=== PATIENT | female | born 1940 | race Caucasian/White ===

== ENCOUNTER 2017-12-31 15:47 | Outpatient (CLI) | payer MEDICARE, OTHER | END 2017-12-31 15:48 | disposition home or self-care (01) | LOC: BICMAMMO 15:47 | PROVIDERS: ATTEND Family Medicine | DX: Z12.31 Encounter for screening mammogram for malignant neoplasm of breast (principal) | CPT/HCPCS: 77063; 77067 ==

== ENCOUNTER 2019-09-04 05:12 | Emergency (ER) | payer MEDICARE, OTHER ==
[2019-09-04] MEDS ORDERED: predniSONE 20 MG TAB ONE (05:41)
[2019-09-04] MEDS ORDERED: Famotidine 20 MG TAB ONE (05:41)
== END 2019-09-04 06:49 | disposition home or self-care (01) ==
LOC: ERS 05:12
DX: R42 Dizziness and giddiness (principal); R11.10 Vomiting, unspecified; R68.2 Dry mouth, unspecified; T40.2X5A Adverse effect of other opioids, initial encounter; I25.2 Old myocardial infarction; K21.9 Gastro-esophageal reflux disease without esophagitis; E66.9 Obesity, unspecified; E11.9 Type 2 diabetes mellitus without complications; E03.9 Hypothyroidism, unspecified; I50.9 Heart failure, unspecified; Z87.891 Personal history of nicotine dependence; Z79.899 Other long term (current) drug therapy; Z79.82 Long term (current) use of aspirin; Z79.84 Long term (current) use of oral hypoglycemic drugs
CPT/HCPCS: 99284; J7512

== ENCOUNTER 2019-09-20 14:50 | Outpatient (CLI) | payer MEDICARE, OTHER ==
--- NOTE | 2019-09-20 15:16 | RAD ---
EXAM: 3 views of the lumbosacral spine HISTORY: Low back pain COMPARISON: None FINDINGS: 3 views of the lumbosacral spine shows normal height and alignment of the vertebral bodies without fracture or subluxation. The intervertebral discs are narrowed throughout the lumbar spine. The L3/4 intervertebral disc has significantly decreased in height compared to the prior examination. Alignment is unchanged with flexion and extension. Vascular calcic lesions are seen in the aorta. 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
== END 2019-09-20 14:51 | disposition home or self-care (01) ==
LOC: TBSIIMAG 14:50
PROVIDERS: ATTEND Neurological Surgery
DX: M51.26 Other intervertebral disc displacement, lumbar region (principal); M47.816 Spondylosis without myelopathy or radiculopathy, lumbar region; M53.86 Other specified dorsopathies, lumbar region
CPT/HCPCS: 72100

== ENCOUNTER 2019-09-30 11:59 | Outpatient (CLI) | payer MEDICARE, OTHER ==
--- NOTE | 2019-09-30 13:07 | ULT ---
US Venous Doppler Lt Unilat History: Leg edema and swelling Comparison: None. Findings: Real-time grayscale, color, and spectral analysis left lower extremity venous system was pe rformed. The common femoral, femoral, proximal portions greater saphenous and deep femoral veins as well as the popliteal and posterior tibial veins were interrogated. Normal flow, augmentation, and compression. Impression: No deep venous thrombosis. Moderate superficial soft tissue edema.
== END 2019-09-30 12:00 | disposition home or self-care (01) ==
LOC: BICULT 11:59
PROVIDERS: ATTEND Family Medicine
DX: R60.1 Generalized edema (principal)

== ENCOUNTER 2021-06-05 19:04 | Inpatient (IN) | payer MEDICARE, OTHER ==
[~2021-06-05 19:04] MED LIST: Iopamidol-370 76% 500 ML 1 ML ONE
[2021-06-05 20:00] LABS: Hemoglobin 13.1 g/dL (12.0-16.0); Mean Corpuscular HGB CONC 32.6 g/dL (32.0-36.0); Mean Corpuscular Hemoglobin 28.5 pg (27.0-31.0); Mean Corpuscular Volume 87.4 fL (78.0-98.0); RBC Distribution Width 17.3 % (11.5-14.5); Red Blood Cell (RBC) Count 4.61 mill/uL (4.20-5.40)
[2021-06-05 20:10] LABS: INR-International Normal Ratio 1.2; PTT 32.1 sec (22.9-36.1); Prothrombin Time 15.3 sec (12.0-14.7)
[2021-06-05 20:12] LABS: Anisocytosis SLIGHT = 6-15 cells (100X) (0-5/hpf); Band 9 % (5-11); Eosinophils 1 % (0-10); Lymphocytes 29 % (21-51); MDiff Complete? YES; Monocytes 3 % (0-10); Neutrophil 52 % (42-75); Platelet Count 103 thou/uL (130-400); Platelet Morphology Comment Appears Decreased; Polychromasia MODERATE = 3-4 cells (100X) (0-2/hpf); Reactive Lymphocytes 6 % (0-10); Tear Drops SLIGHT = 2-5 cells (100X) (0-1/hpf)
[2021-06-05 20:14] LABS: ALT (SGPT) 14 U/L (8-55); AST (SGOT) 61 U/L (5-34); Acetaminophen Less than 6.0 mcg/mL (10.0-30.0); Albumin 3.4 g/dL (3.4-4.8); Alcohol Less than 10 mg/dL (Less than 10); Alkaline Phosphatase 148 U/L (40-110); Anion Gap 22 mmol/L (10-20); BUN (Urea Nitrogen) 40 mg/dL (9.8-20.1); Bilirubin, Total 0.8 mg/dL (0.2-1.2); Calc. Creatinine Clearance 0 mL/min (70-130); Calcium 9.7 mg/dL (7.8-10.44); Carbon Dioxide 24 mmol/L (23-31); Chloride 92 mmol/L (98-107); Globulin 3.4 g/dL (2.4-3.5); Glucose 250 mg/dL (83-110); Magnesium 2.1 mg/dL (1.6-2.6); Potassium 3.9 mmol/L (3.5-5.1); Protein, Total 6.8 g/dL (5.8-8.1); Salicylate Less than 8.0 mg/dL (15.0-30.0); Sodium 134 mmol/L (136-145)
[2021-06-05 20:32] LABS: CKMB 2.8 ng/mL (0-6.6)
[2021-06-05] MEDS ORDERED: levETIRAcetam 500 MG/100 ML PREMIX BAG ONE ×2 (21:31→21:33)
[2021-06-05] MEDS ORDERED: Aspirin 325 MG TAB ONE (21:31)
[2021-06-05] MEDS ORDERED: levETIRAcetam in NS 0 ML ONE (21:31)
[2021-06-05] MEDS ORDERED: levETIRAcetam in NS 100 ML ONE (21:32)
[2021-06-06] MEDS ORDERED: Acetaminophen 325 MG TAB PO SCH (01:30)
[2021-06-06] MEDS ORDERED: Ondansetron ODT 4 MG TAB PO PRN (03:50)
[2021-06-06] MEDS ORDERED: Dextrose 5% in Water 1,000 ML IV PRN (03:50)
[2021-06-06] MEDS ORDERED: Morphine 4 MG/ML VIAL SLOW IVP PRN (04:05)
[2021-06-06 05:19] LABS: #Eosinphils 0.1 thou/uL (0.0-0.7); #Lymphocytes 1.6 thou/uL (1.20-3.40); #Monocytes 0.7 thou/uL (0.11-0.59); #Neutrophils 7.4 thou/uL (1.40-6.50); %Basophils 0.1 % (0.0-1.0); %Eosinophils 0.7 % (0.0-10.0); %Lymphocytes 16.3 % (21.0-51.0); %Monocytes 6.8 % (0.0-10.0); %Neutrophils 76.1 % (42.0-75.0); Mean Corpuscular HGB CONC 31.6 g/dL (32.0-36.0); Mean Corpuscular Hemoglobin 27.8 pg (27.0-31.0); Mean Platelet Volume 8.9 fL (7.4-10.4); Platelet Count 83 thou/uL (130-400); RBC Distribution Width 16.6 % (11.5-14.5); Red Blood Cell (RBC) Count 4.32 mill/uL (4.20-5.40); White Blood Cell (WBC) Count 9.7 thou/uL (4.8-10.8)
[2021-06-06] MEDS ORDERED: Sodium Chloride 0.9% 1,000 ML IV SCH (05:30)
[2021-06-06] MEDS ORDERED: Piperacillin/Tazobactam 3.375 GM in Sodium Chloride 0.9% 100 ML IVPB SCH (05:30)
[2021-06-06] MEDS ORDERED: Sodium Chloride 0.9% 500 ML IV SCH (05:30)
[2021-06-06 05:32] LABS: Anion Gap 21 mmol/L (10-20); BUN (Urea Nitrogen) 42 mg/dL (9.8-20.1); Calc. Creatinine Clearance 24 mL/min (70-130); Calcium 9.5 mg/dL (7.8-10.44); Carbon Dioxide 24 mmol/L (23-31); Chloride 96 mmol/L (98-107); Glucose 137 mg/dL (83-110); Potassium 4.7 mmol/L (3.5-5.1); Sodium 136 mmol/L (136-145)
[2021-06-06 07:11] LABS: Lactic Acid 2.1 mmol/L (0.5-2.2)
[2021-06-06] MEDS: Acetaminophen 325 MG TAB PO PRN ×3 (10:15→21:19)
[2021-06-06] MEDS: Piperacillin/Tazobactam 3.375 GM in Sodium Chloride 0.9% 100 ML IVPB SCH ×2 (10:15→21:19)
[2021-06-06] MEDS: Aspirin 81 mg Enteric Coated Tablet PO SCH (10:16)
[2021-06-06] MEDS: Polyethylene Glycol 3350 17 GM Packet PO SCH (10:16)
[2021-06-06 12:12] LABS: SARS-CoV-2 PCR by NAA Not Detected (NotDetected)
[2021-06-06] MEDS: Sodium Chloride 0.9% 1,000 ML IV SCH (14:39)
[2021-06-06 17:35] LABS: Bacteria/HPF None Seen HPF (None Seen); Bilirubin Negative (Negative); Blood, Urine Negative (Negative); Clarity Clear (Clear); Glucose, Urine (Dipstick) Normal (Negative); Ketone, Urine Negative (Negative); Leukocyte 25 Leu/uL (Negative); Nitrite Negative (Negative); Protein, Urine (Dipstick) 30 mg/dL (Neg-Trace); RBC/HPF 0-3 HPF (0-3); Specific Gravity, Urine 1.027 (1.002-1.036); Urobilinogen Normal mg/dL (Less than 2)
[2021-06-06 17:39] LABS: Urine Culture Reflex No No
[2021-06-06] MEDS: Dextrose 50% Abboject 50 ML SYRINGE SLOW IVP PRN (21:20)
[2021-06-07] MEDS: Sodium Chloride 0.9% 1,000 ML IV SCH ×4 (00:01→21:49)
[2021-06-07] MEDS ORDERED: Cyclobenzaprine 10 MG TAB PO SCH (03:16)
[2021-06-07 05:47] LABS: #Eosinphils 0.1 thou/uL (0.0-0.7); #Lymphocytes 1.6 thou/uL (1.20-3.40); #Monocytes 0.5 thou/uL (0.11-0.59); #Neutrophils 6.6 thou/uL (1.40-6.50); %Basophils 0.4 % (0.0-1.0); %Eosinophils 1.5 % (0.0-10.0); %Lymphocytes 18.1 % (21.0-51.0); %Monocytes 5.9 % (0.0-10.0); %Neutrophils 74.1 % (42.0-75.0); Hemoglobin 12.1 g/dL (12.0-16.0); Mean Corpuscular HGB CONC 33.3 g/dL (32.0-36.0); Mean Corpuscular Hemoglobin 29.4 pg (27.0-31.0); Mean Corpuscular Volume 88.4 fL (78.0-98.0); Mean Platelet Volume 9.3 fL (7.4-10.4); Platelet Count 82 thou/uL (130-400); Red Blood Cell (RBC) Count 4.12 mill/uL (4.20-5.40); White Blood Cell (WBC) Count 8.9 thou/uL (4.8-10.8)
[2021-06-07 06:09] LABS: Anion Gap 20 mmol/L (10-20); BUN (Urea Nitrogen) 41 mg/dL (9.8-20.1); Calc. Creatinine Clearance 22 mL/min (70-130); Calcium 9.1 mg/dL (7.8-10.44); Carbon Dioxide 22 mmol/L (23-31); Cardiac Risk 3.2 (Less than 4.5); Chloride 97 mmol/L (98-107); Cholesterol 100 mg/dl (< 200 Desired); Glucose 148 mg/dL (83-110); HDL Cholesterol 31 mg/dL (>60 Neg Risk); LDL Cholesterol, Calculated 50 mg/dL; Potassium 4.1 mmol/L (3.5-5.1); Sodium 135 mmol/L (136-145); Triglycerides 93 mg/dL (Less than 150)
[2021-06-07] MEDS: Aspirin 81 mg Enteric Coated Tablet PO SCH (09:34)
[2021-06-07] MEDS: Piperacillin/Tazobactam 3.375 GM in Sodium Chloride 0.9% 100 ML IVPB SCH (09:34)
[2021-06-07] MEDS: Polyethylene Glycol 3350 17 GM Packet PO SCH (10:15)
[2021-06-07] MEDS ORDERED: levETIRAcetam 500 MG TAB PO SCH (19:00)
[2021-06-08] MEDS: Acetaminophen 325 MG TAB PO PRN (01:15)
[2021-06-08] MEDS ORDERED: Cyclobenzaprine 10 MG TAB PO SCH (03:00)
[2021-06-08] MEDS: Sodium Chloride 0.9% 1,000 ML IV SCH ×4 (03:04→21:17)
[2021-06-08] MEDS: levETIRAcetam 500 MG TAB PO SCH ×2 (08:50→20:29)
[2021-06-08] MEDS: Aspirin 81 mg Enteric Coated Tablet PO SCH (08:50)
[2021-06-08] MEDS ORDERED: FLU VACC QS2021-22(65YR UP)/PF 240 MCG/0.7 ML SYRINGE IM ONE (09:00)
[2021-06-08] MEDS ORDERED: Gabapentin 400 MG CAP PO SCH (10:00)
[2021-06-08] MEDS: Lidocaine 5% Patch TD SCH (10:12)
[2021-06-08 10:23] LABS: Anion Gap 20 mmol/L (10-20); BUN (Urea Nitrogen) 35 mg/dL (9.8-20.1); Calc. Creatinine Clearance 26 mL/min (70-130); Calcium 9.4 mg/dL (7.8-10.44); Carbon Dioxide 19 mmol/L (23-31); Chloride 104 mmol/L (98-107); Glucose 68 mg/dL (83-110); Sodium 139 mmol/L (136-145)
[2021-06-08] MEDS: Gabapentin 400 MG CAP PO SCH ×2 (15:44→20:29)
[2021-06-08] MEDS: Rosuvastatin 10 MG TAB PO SCH (20:29)
[2021-06-08] MEDS: Atorvastatin Calcium 20 MG TAB PO SCH (20:29)
[2021-06-08] MEDS: Transdermal Patch Removal TOP SCH (20:38)
[2021-06-09] MEDS ORDERED: Cepastat Lozenges 1 LOZ PO PRN (01:10)
[2021-06-09] MEDS: hydrALAZINE 20 MG/ML VIAL SLOW IVP PRN ×2 (01:21→03:57)
[2021-06-09 05:38] LABS: Anion Gap 17 mmol/L (10-20); BUN (Urea Nitrogen) 36 mg/dL (9.8-20.1); Calc. Creatinine Clearance 35 mL/min (70-130); Carbon Dioxide 21 mmol/L (23-31); Chloride 102 mmol/L (98-107); Potassium 4.1 mmol/L (3.5-5.1); Sodium 136 mmol/L (136-145)
[2021-06-09 05:39] LABS: Calcium 9.4 mg/dL (7.8-10.44); Glucose 109 mg/dL (83-110)
[2021-06-09] MEDS: Levothyroxine Sodium 112 MCG TAB PO SCH (05:48)
[2021-06-09] MEDS: Levothyroxine Sodium 25 MCG TAB PO SCH (05:48)
[2021-06-09] MEDS: Lidocaine 5% Patch TD SCH (06:25)
[2021-06-09] MEDS: Acetaminophen 325 MG TAB PO PRN (08:08)
[2021-06-09] MEDS: Gabapentin 400 MG CAP PO SCH ×3 (08:10→20:18)
[2021-06-09] MEDS: Aspirin 81 mg Enteric Coated Tablet PO SCH (08:11)
[2021-06-09] MEDS: levETIRAcetam 500 MG TAB PO SCH ×2 (08:11→20:18)
[2021-06-09] MEDS: DULoxetine 60 MG CAP PO SCH (08:11)
[2021-06-09] MEDS ORDERED: tiZANidine HCl 4 MG TAB PO SCH (08:45)
[2021-06-09] MEDS ORDERED: Amlodipine 5 MG TAB PO SCH (14:00)
[2021-06-09] MEDS: Atorvastatin Calcium 20 MG TAB PO SCH (20:18)
[2021-06-09] MEDS: Rosuvastatin 10 MG TAB PO SCH (20:18)
[2021-06-10] MEDS: Acetaminophen 325 MG TAB PO PRN (01:35)
[2021-06-10] MEDS: tiZANidine HCl 4 MG TAB PO PRN ×3 (01:35→15:58)
[2021-06-10] MEDS: Transdermal Patch Removal TOP SCH ×2 (01:37→21:50)
[2021-06-10 06:23] LABS: Anion Gap 15 mmol/L (10-20); BUN (Urea Nitrogen) 34 mg/dL (9.8-20.1); Calc. Creatinine Clearance 38 mL/min (70-130); Calcium 9.3 mg/dL (7.8-10.44); Carbon Dioxide 25 mmol/L (23-31); Chloride 100 mmol/L (98-107); Glucose 97 mg/dL (83-110); Potassium 4.7 mmol/L (3.5-5.1); Sodium 135 mmol/L (136-145)
[2021-06-10] MEDS: Levothyroxine Sodium 112 MCG TAB PO SCH (06:26)
[2021-06-10] MEDS: Levothyroxine Sodium 25 MCG TAB PO SCH (06:26)
[2021-06-10] MEDS ORDERED: Amlodipine 5 MG TAB PO SCH (09:00)
[2021-06-10] MEDS: Lidocaine 5% Patch TD SCH (09:12)
[2021-06-10] MEDS: Amlodipine 5 MG TAB PO SCH (09:12)
[2021-06-10] MEDS: Aspirin 81 mg Enteric Coated Tablet PO SCH (09:13)
[2021-06-10] MEDS: DULoxetine 60 MG CAP PO SCH (09:13)
[2021-06-10] MEDS: Gabapentin 400 MG CAP PO SCH ×3 (09:13→20:28)
[2021-06-10] MEDS: levETIRAcetam 500 MG TAB PO SCH ×2 (09:13→20:28)
[2021-06-10] MEDS: Atorvastatin Calcium 20 MG TAB PO SCH (20:28)
[2021-06-10] MEDS: diphenhydrAMINE 25 MG CAP PO PRN (20:29)
[2021-06-10] MEDS: Rosuvastatin 10 MG TAB PO SCH (20:29)
[2021-06-10] MEDS: HYDROcodone/Acetaminophen 5/325 mg Tablet PO PRN (20:29)
[2021-06-11] MEDS: diphenhydrAMINE 25 MG CAP PO PRN ×3 (01:38→19:57)
[2021-06-11] MEDS: HYDROcodone/Acetaminophen 5/325 mg Tablet PO PRN ×4 (01:38→19:57)
[2021-06-11] MEDS: Dextrose 50% Abboject 50 ML SYRINGE SLOW IVP PRN (05:41)
[2021-06-11] MEDS: Levothyroxine Sodium 25 MCG TAB PO SCH (05:52)
[2021-06-11] MEDS: Levothyroxine Sodium 112 MCG TAB PO SCH (05:52)
[2021-06-11 06:02] LABS: Anion Gap 18 mmol/L (10-20); BUN (Urea Nitrogen) 39 mg/dL (9.8-20.1); Calc. Creatinine Clearance 35 mL/min (70-130); Calcium 9.5 mg/dL (7.8-10.44); Carbon Dioxide 20 mmol/L (23-31); Chloride 98 mmol/L (98-107); Potassium 4.2 mmol/L (3.5-5.1); Sodium 132 mmol/L (136-145)
[2021-06-11 06:05] LABS: Glucose 39 mg/dL (83-110)
[2021-06-11] MEDS: levETIRAcetam 500 MG TAB PO SCH ×2 (09:21→19:56)
[2021-06-11] MEDS: Aspirin 81 mg Enteric Coated Tablet PO SCH (09:21)
[2021-06-11] MEDS: DULoxetine 60 MG CAP PO SCH (09:21)
[2021-06-11] MEDS: Gabapentin 400 MG CAP PO SCH ×3 (09:21→19:56)
[2021-06-11] MEDS: Amlodipine 5 MG TAB PO SCH (09:21)
[2021-06-11] MEDS: Sodium Chloride 0.9% 1,000 ML IV SCH (09:21)
[2021-06-11] MEDS: Lidocaine 5% Patch TD SCH (09:21)
[2021-06-11] MEDS: Carvedilol 6.25 MG TAB PO SCH (18:22)
[2021-06-11] MEDS: tiZANidine HCl 4 MG TAB PO PRN (18:22)
[2021-06-11] MEDS: Rosuvastatin 10 MG TAB PO SCH (19:56)
[2021-06-11] MEDS: Transdermal Patch Removal TOP SCH (23:40)
[2021-06-12] MEDS: Levothyroxine Sodium 25 MCG TAB PO SCH (05:24)
[2021-06-12] MEDS: Levothyroxine Sodium 112 MCG TAB PO SCH (05:24)
[2021-06-12] MEDS: Sodium Chloride 0.9% 1,000 ML IV SCH (05:27)
[2021-06-12 08:12] LABS: Anion Gap 21 mmol/L (10-20); BUN (Urea Nitrogen) 43 mg/dL (9.8-20.1); Calc. Creatinine Clearance 33 mL/min (70-130); Calcium 9.5 mg/dL (7.8-10.44); Carbon Dioxide 14 mmol/L (23-31); Chloride 99 mmol/L (98-107); Glucose 180 mg/dL (83-110); Potassium 5.6 mmol/L (3.5-5.1); Sodium 128 mmol/L (136-145)
[2021-06-12] MEDS ORDERED: Sodium Bicarbonate 150 MEQ in Dextrose 5% in Water 1,000 ML IV SCH (08:45)
[2021-06-12] MEDS: Gabapentin 400 MG CAP PO SCH ×3 (09:26→20:22)
[2021-06-12] MEDS: DULoxetine 60 MG CAP PO SCH (09:26)
[2021-06-12] MEDS: Aspirin 81 mg Enteric Coated Tablet PO SCH (09:26)
[2021-06-12] MEDS: Carvedilol 6.25 MG TAB PO SCH ×2 (09:26→17:14)
[2021-06-12] MEDS: Lidocaine 5% Patch TD SCH (09:32)
[2021-06-12] MEDS: levETIRAcetam 500 MG TAB PO SCH ×2 (09:33→20:23)
[2021-06-12] MEDS: HYDROcodone/Acetaminophen 5/325 mg Tablet PO PRN (12:30)
[2021-06-12] MEDS: diphenhydrAMINE 25 MG CAP PO PRN (12:31)
[2021-06-12 14:00] LABS: Actual Bicarbonate (HCO3a) 20.7 mEq/L (22-28); Base Excess (BEa) -5.9 mEq/L (-2.0 to +3.0); CO2 Tension 45.5 mmHg (35.0-45.0); Calcium, Ionized (arterial) 1.24 mmol/L (1.12-1.30); Carboxyhemoglobin (COHb) 0.7 gm% (0.0-3.0); Hemoglobin (Hb) 11.6 g/dL (12.0-16.0); O2 Tension (PaO2), arterial 102.5 mmHg (> 60.0); Potassium - ABG Lab 5.19 mmol/L (3.70-5.30); pH, Arterial 7.28 (7.35-7.45)
[2021-06-12 14:14] LABS: Puncture Site LBA
[2021-06-12] MEDS ORDERED: Calcium Gluc 4.6 MEQ/10 ML (100 MG/ML) SLOW IVP ONE (14:36)
[2021-06-12] MEDS ORDERED: Calcium Gluconate 9.2 MEQ in Sodium Chloride 0.9% 100 ML IVPB SCH (14:45)
[2021-06-12] MEDS: Acetaminophen 325 MG TAB PO SCH ×2 (15:25→20:22)
[2021-06-12] MEDS: HumaLOG 300 UNITS/3 ML VIAL SC PRN ×2 (16:20→22:54)
[2021-06-12 16:46] LABS: Actual Bicarbonate (HCO3a) 21.5 mEq/L (22-28); Base Excess (BEa) -5.2 mEq/L (-2.0 to +3.0); CO2 Tension 46.4 mmHg (35.0-45.0); Calcium, Ionized (arterial) 1.28 mmol/L (1.12-1.30); Carboxyhemoglobin (COHb) 0.4 gm% (0.0-3.0); Hemoglobin (Hb) 11.8 g/dL (12.0-16.0); O2 Tension (PaO2), arterial 232.4 mmHg (> 60.0); Potassium - ABG Lab 5.26 mmol/L (3.70-5.30); pH, Arterial 7.28 (7.35-7.45)
[2021-06-12 16:49] LABS: Puncture Site LRA
[2021-06-12 16:58] LABS: Anion Gap 22 mmol/L (10-20); BUN (Urea Nitrogen) 44 mg/dL (9.8-20.1); Calc. Creatinine Clearance 31 mL/min (70-130); Calcium 9.7 mg/dL (7.8-10.44); Carbon Dioxide 19 mmol/L (23-31); Chloride 95 mmol/L (98-107); Glucose 212 mg/dL (83-110); Potassium 5.7 mmol/L (3.5-5.1); Sodium 130 mmol/L (136-145)
[2021-06-12] MEDS ORDERED: Furosemide 40 MG/4 ML VIAL ONE (17:01)
[2021-06-12] MEDS ORDERED: Furosemide 20 MG/2 ML VIAL SLOW IVP SCH ×2 (17:15→21:00)
[2021-06-12 17:26] LABS: #Eosinphils 0.1 thou/uL (0.0-0.7); #Lymphocytes 1.4 thou/uL (1.20-3.40); #Monocytes 0.4 thou/uL (0.11-0.59); #Neutrophils 8.1 thou/uL (1.40-6.50); %Basophils 0.1 % (0.0-1.0); %Eosinophils 1.1 % (0.0-10.0); %Lymphocytes 14.1 % (21.0-51.0); %Monocytes 4.3 % (0.0-10.0); %Neutrophils 80.4 % (42.0-75.0); Hemoglobin 12.3 g/dL (12.0-16.0); Mean Corpuscular HGB CONC 33.1 g/dL (32.0-36.0); Mean Corpuscular Hemoglobin 28.5 pg (27.0-31.0); Mean Corpuscular Volume 86.2 fL (78.0-98.0); Mean Platelet Volume 9.8 fL (7.4-10.4); Platelet Count 69 thou/uL (130-400); RBC Distribution Width 17.2 % (11.5-14.5); White Blood Cell (WBC) Count 10.1 thou/uL (4.8-10.8)
[2021-06-12] MEDS: Rosuvastatin 10 MG TAB PO SCH (20:23)
[2021-06-12 20:37] LABS: Base Excess (BEa) -2.7 mEq/L (-2.0 to +3.0); CO2 Tension 50.1 mmHg (35.0-45.0); Calcium, Ionized (arterial) 1.27 mmol/L (1.12-1.30); Carboxyhemoglobin (COHb) 0.8 gm% (0.0-3.0); Hemoglobin (Hb) 11.9 g/dL (12.0-16.0); O2 Tension (PaO2), arterial 226.5 mmHg (> 60.0); Potassium - ABG Lab 4.95 mmol/L (3.70-5.30)
[2021-06-12 20:39] LABS: ALV-art Gradient 67.375 mmHg (0-20); Puncture Site LR
[2021-06-12] MEDS: Transdermal Patch Removal TOP SCH (21:40)
[2021-06-12] MEDS ORDERED: levETIRAcetam in NS 500 MG in Premix Bag 1 BAG IVPB SCH (21:45)
[2021-06-12] MEDS: levETIRAcetam in NS 500 MG in Premix Bag 1 BAG IVPB SCH ×3 (22:42→22:53)
[2021-06-13] MEDS: Levothyroxine Sodium 25 MCG TAB PO SCH (02:29)
[2021-06-13] MEDS: Levothyroxine Sodium 112 MCG TAB PO SCH (02:29)
[2021-06-13 04:05] LABS: Anion Gap 20 mmol/L (10-20); BUN (Urea Nitrogen) 47 mg/dL (9.8-20.1); Calc. Creatinine Clearance 33 mL/min (70-130); Calcium 9.7 mg/dL (7.8-10.44); Carbon Dioxide 22 mmol/L (23-31); Chloride 93 mmol/L (98-107); Glucose 170 mg/dL (83-110); Potassium 4.7 mmol/L (3.5-5.1); Sodium 130 mmol/L (136-145)
[2021-06-13 05:58] LABS: #Eosinphils 0.1 thou/uL (0.0-0.7); #Lymphocytes 1.1 thou/uL (1.20-3.40); #Monocytes 0.4 thou/uL (0.11-0.59); #Neutrophils 7.3 thou/uL (1.40-6.50); %Basophils 0.4 % (0.0-1.0); %Eosinophils 1.2 % (0.0-10.0); %Lymphocytes 12.1 % (21.0-51.0); %Monocytes 4.8 % (0.0-10.0); %Neutrophils 81.5 % (42.0-75.0); Hemoglobin 11.5 g/dL (12.0-16.0); Mean Corpuscular HGB CONC 32.8 g/dL (32.0-36.0); Mean Corpuscular Volume 85.3 fL (78.0-98.0); Mean Platelet Volume 9.7 fL (7.4-10.4); Platelet Count 73 thou/uL (130-400); RBC Distribution Width 17.2 % (11.5-14.5); Red Blood Cell (RBC) Count 4.13 mill/uL (4.20-5.40)
[2021-06-13] MEDS: Carvedilol 6.25 MG TAB PO SCH ×2 (07:41→17:00)
[2021-06-13] MEDS: DULoxetine 60 MG CAP PO SCH (08:36)
[2021-06-13] MEDS: Gabapentin 400 MG CAP PO SCH (08:36)
[2021-06-13] MEDS: levETIRAcetam in NS 500 MG in Premix Bag 1 BAG IVPB SCH ×2 (08:37→20:25)
[2021-06-13] MEDS: Acetaminophen 325 MG TAB PO SCH ×3 (08:37→20:26)
[2021-06-13] MEDS: Aspirin 81 mg Enteric Coated Tablet PO SCH (08:37)
[2021-06-13] MEDS: Lidocaine 5% Patch TD SCH (09:59)
[2021-06-13] MEDS ORDERED: Furosemide 40 MG/4 ML VIAL SLOW IVP SCH (10:30)
[2021-06-13 12:31] VITALS: BMI 34.4
[2021-06-13] MEDS: tiZANidine HCl 4 MG TAB PO PRN (12:38)
[2021-06-13] MEDS: Ondansetron PF 4 MG/2 ML Vial IVP PRN (13:53)
[2021-06-13] MEDS: HumaLOG 300 UNITS/3 ML VIAL SC PRN (16:08)
[2021-06-13] MEDS: Rosuvastatin 10 MG TAB PO SCH (20:26)
[2021-06-13] MEDS: Gabapentin 300 MG CAP PO SCH (20:28)
[2021-06-13] MEDS: Transdermal Patch Removal TOP SCH (22:00)
[2021-06-14] MEDS: tiZANidine HCl 4 MG TAB PO PRN (00:36)
[2021-06-14 04:37] LABS: Anion Gap 23 mmol/L (10-20); BUN (Urea Nitrogen) 56 mg/dL (9.8-20.1); Calc. Creatinine Clearance 34 mL/min (70-130); Calcium 9.2 mg/dL (7.8-10.44); Carbon Dioxide 17 mmol/L (23-31); Chloride 95 mmol/L (98-107); Glucose 171 mg/dL (83-110); Potassium 5.5 mmol/L (3.5-5.1); Sodium 129 mmol/L (136-145)
[2021-06-14] MEDS: Levothyroxine Sodium 112 MCG TAB PO SCH (05:46)
[2021-06-14] MEDS: Levothyroxine Sodium 25 MCG TAB PO SCH (05:46)
[2021-06-14] MEDS: HumaLOG 300 UNITS/3 ML VIAL SC PRN (06:43)
[2021-06-14] MEDS: Aspirin 81 mg Enteric Coated Tablet PO SCH (10:24)
[2021-06-14] MEDS: Gabapentin 300 MG CAP PO SCH ×2 (10:24→21:32)
[2021-06-14] MEDS: DULoxetine 60 MG CAP PO SCH (10:24)
[2021-06-14] MEDS: Acetaminophen 325 MG TAB PO SCH ×3 (10:24→21:32)
[2021-06-14] MEDS: Carvedilol 6.25 MG TAB PO SCH ×2 (10:24→16:45)
[2021-06-14 11:06] LABS: Hemoglobin 12.2 g/dL (12.0-16.0); Mean Corpuscular HGB CONC 34.3 g/dL (32.0-36.0); Mean Corpuscular Hemoglobin 29.7 pg (27.0-31.0); Mean Corpuscular Volume 86.4 fL (78.0-98.0); Mean Platelet Volume 10.3 fL (7.4-10.4); Platelet Count 71 thou/uL (130-400); RBC Distribution Width 17.3 % (11.5-14.5); Red Blood Cell (RBC) Count 4.12 mill/uL (4.20-5.40); White Blood Cell (WBC) Count 8.6 thou/uL (4.8-10.8)
[2021-06-14 11:25] LABS: Band 9 % (5-11); Eosinophils 1 % (0-10); Lymphocytes 19 % (21-51); MDiff Complete? YES; Metamyelocyte 2 % (0-0); Monocytes 7 % (0-10); Myelocyte 1 % (0-0); Neutrophil 61 % (42-75); Nucleated RBC 1 % (0); Platelet Morphology Comment Appears Decreased; RBC Morphology Normal
[2021-06-14] MEDS: levETIRAcetam in NS 500 MG in Premix Bag 1 BAG IVPB SCH ×2 (11:41→21:33)
[2021-06-14] MEDS: Lidocaine 5% Patch TD SCH (12:32)
[2021-06-14 15:11] LABS: Hep B Core Total Ab Non-Reactive (NonReactive); Hep B Core Total Index 0.07 S/CO (0-0.79)
[2021-06-14 15:31] LABS: HBSAB Concentration Less than 8.00 mIU/mL; Hep B Surf AB Non-Reactive (NonReactive); Hep C IgG Ab Non-Reactive (NonReactive); Hep C Index 0.06 S/CO (0-0.79)
[2021-06-14 15:32] LABS: HBSAg Index 0.33 S/CO (0-0.99); Hep B Surf Ag Non-Reactive S/CO (NonReactive)
[2021-06-14] MEDS: HYDROcodone/Acetaminophen 5/325 mg Tablet PO PRN (16:45)
[2021-06-14] MEDS: Rosuvastatin 10 MG TAB PO SCH (21:33)
[2021-06-15] MEDS: Transdermal Patch Removal TOP SCH ×2 (00:07→22:36)
[2021-06-15 04:12] LABS: #Eosinphils 0.2 thou/uL (0.0-0.7); #Lymphocytes 1.5 thou/uL (1.20-3.40); #Monocytes 0.3 thou/uL (0.11-0.59); #Neutrophils 6.3 thou/uL (1.40-6.50); %Basophils 0.5 % (0.0-1.0); %Lymphocytes 18.4 % (21.0-51.0); %Monocytes 3.4 % (0.0-10.0); %Neutrophils 75.7 % (42.0-75.0); Hemoglobin 10.8 g/dL (12.0-16.0); Mean Corpuscular HGB CONC 34.9 g/dL (32.0-36.0); Mean Corpuscular Hemoglobin 30.1 pg (27.0-31.0); Mean Corpuscular Volume 86.4 fL (78.0-98.0); Mean Platelet Volume 8.8 fL (7.4-10.4); Platelet Count 72 thou/uL (130-400); Red Blood Cell (RBC) Count 3.58 mill/uL (4.20-5.40); White Blood Cell (WBC) Count 8.4 thou/uL (4.8-10.8)
[2021-06-15 04:22] LABS: Anion Gap 22 mmol/L (10-20); BUN (Urea Nitrogen) 45 mg/dL (9.8-20.1); Calc. Creatinine Clearance 39 mL/min (70-130); Calcium 9.5 mg/dL (7.8-10.44); Carbon Dioxide 21 mmol/L (23-31); Chloride 95 mmol/L (98-107); Glucose 117 mg/dL (83-110); Potassium 4.5 mmol/L (3.5-5.1); Sodium 133 mmol/L (136-145)
[2021-06-15] MEDS: Levothyroxine Sodium 25 MCG TAB PO SCH (06:26)
[2021-06-15] MEDS: Levothyroxine Sodium 112 MCG TAB PO SCH (06:26)
[2021-06-15] MEDS: DULoxetine 60 MG CAP PO SCH (08:07)
[2021-06-15] MEDS: Gabapentin 300 MG CAP PO SCH ×2 (08:07→21:20)
[2021-06-15] MEDS: Carvedilol 6.25 MG TAB PO SCH ×2 (08:07→18:10)
[2021-06-15] MEDS: Aspirin 81 mg Enteric Coated Tablet PO SCH (08:07)
[2021-06-15] MEDS: levETIRAcetam in NS 500 MG in Premix Bag 1 BAG IVPB SCH ×2 (08:08→21:20)
[2021-06-15] MEDS: Acetaminophen 325 MG TAB PO SCH ×3 (08:08→21:20)
[2021-06-15] MEDS: HYDROcodone/Acetaminophen 5/325 mg Tablet PO PRN (08:08)
[2021-06-15] MEDS ORDERED: Heparin 10,000 UNITS/ 10 ML VIAL ONE (10:22)
[2021-06-15] MEDS: Lidocaine 5% Patch TD SCH (15:14)
[2021-06-15] MEDS: Ondansetron PF 4 MG/2 ML Vial IVP PRN (16:15)
[2021-06-15] MEDS: Rosuvastatin 10 MG TAB PO SCH (21:20)
[2021-06-15] MEDS: HumaLOG 300 UNITS/3 ML VIAL SC PRN (21:21)
[2021-06-16 01:21] LABS: SARS-CoV-2 PCR by NAA Not Detected (NotDetected)
[2021-06-16 04:07] LABS: #Eosinphils 0.2 thou/uL (0.0-0.7); #Lymphocytes 1.2 thou/uL (1.20-3.40); #Monocytes 0.4 thou/uL (0.11-0.59); %Basophils 0.4 % (0.0-1.0); %Eosinophils 2.4 % (0.0-10.0); %Lymphocytes 17.7 % (21.0-51.0); %Monocytes 6.1 % (0.0-10.0); %Neutrophils 73.4 % (42.0-75.0); Hemoglobin 10.5 g/dL (12.0-16.0); Mean Corpuscular HGB CONC 35.3 g/dL (32.0-36.0); Mean Corpuscular Hemoglobin 30.3 pg (27.0-31.0); Mean Platelet Volume 8.6 fL (7.4-10.4); Platelet Count 66 thou/uL (130-400); RBC Distribution Width 16.9 % (11.5-14.5); Red Blood Cell (RBC) Count 3.46 mill/uL (4.20-5.40); White Blood Cell (WBC) Count 6.8 thou/uL (4.8-10.8)
[2021-06-16] MEDS: hydrALAZINE 20 MG/ML VIAL SLOW IVP PRN (04:22)
[2021-06-16 04:26] LABS: ALT (SGPT) 21 U/L (8-55); AST (SGOT) 47 U/L (5-34); Albumin 3.2 g/dL (3.4-4.8); Alkaline Phosphatase 142 U/L (40-110); Anion Gap 19 mmol/L (10-20); BUN (Urea Nitrogen) 32 mg/dL (9.8-20.1); Bilirubin, Total 0.5 mg/dL (0.2-1.2); Calc. Creatinine Clearance 33 mL/min (70-130); Calcium 9.6 mg/dL (7.8-10.44); Carbon Dioxide 24 mmol/L (23-31); Chloride 96 mmol/L (98-107); Globulin 2.6 g/dL (2.4-3.5); Glucose 268 mg/dL (83-110); Potassium 4.4 mmol/L (3.5-5.1); Protein, Total 5.8 g/dL (5.8-8.1); Sodium 135 mmol/L (136-145)
[2021-06-16] MEDS: Levothyroxine Sodium 112 MCG TAB PO SCH (06:23)
[2021-06-16] MEDS: HumaLOG 300 UNITS/3 ML VIAL SC PRN ×3 (06:23→20:47)
[2021-06-16] MEDS: Levothyroxine Sodium 25 MCG TAB PO SCH (06:23)
[2021-06-16] MEDS: DULoxetine 60 MG CAP PO SCH (08:02)
[2021-06-16] MEDS: Carvedilol 6.25 MG TAB PO SCH ×2 (08:02→16:45)
[2021-06-16] MEDS: Aspirin 81 mg Enteric Coated Tablet PO SCH (08:02)
[2021-06-16] MEDS: Gabapentin 300 MG CAP PO SCH ×2 (08:02→20:47)
[2021-06-16] MEDS: HYDROcodone/Acetaminophen 5/325 mg Tablet PO PRN (08:03)
[2021-06-16] MEDS: levETIRAcetam in NS 500 MG in Premix Bag 1 BAG IVPB SCH ×2 (08:03→20:45)
[2021-06-16] MEDS: Acetaminophen 325 MG TAB PO SCH ×3 (08:03→20:47)
[2021-06-16] MEDS: Lidocaine 5% Patch TD SCH (08:04)
[2021-06-16] MEDS: Rosuvastatin 10 MG TAB PO SCH (20:47)
[2021-06-17] MEDS: HYDROcodone/Acetaminophen 5/325 mg Tablet PO PRN ×2 (00:01→23:13)
[2021-06-17] MEDS: Transdermal Patch Removal TOP SCH ×2 (00:15→23:13)
[2021-06-17] MEDS: HumaLOG 300 UNITS/3 ML VIAL SC PRN (06:11)
[2021-06-17] MEDS: Acetaminophen 325 MG TAB PO SCH ×3 (09:20→20:40)
[2021-06-17] MEDS: Carvedilol 6.25 MG TAB PO SCH ×2 (09:29→16:29)
[2021-06-17] MEDS: Gabapentin 300 MG CAP PO SCH ×2 (09:29→20:31)
[2021-06-17] MEDS: levETIRAcetam in NS 500 MG in Premix Bag 1 BAG IVPB SCH ×2 (09:29→20:30)
[2021-06-17] MEDS: Levothyroxine Sodium 25 MCG TAB PO SCH (09:29)
[2021-06-17] MEDS: Aspirin 81 mg Enteric Coated Tablet PO SCH (09:29)
[2021-06-17] MEDS: DULoxetine 60 MG CAP PO SCH (09:29)
[2021-06-17] MEDS: Levothyroxine Sodium 112 MCG TAB PO SCH (09:29)
[2021-06-17] MEDS: Lidocaine 5% Patch TD SCH (09:30)
[2021-06-17] MEDS: Lantus 1000 UNITS/10 ML VIAL SC SCH (09:50)
[2021-06-17 10:08] LABS: #Basophils 0.1 thou/uL (0.0-0.2); #Eosinphils 0.4 thou/uL (0.0-0.7); #Lymphocytes 1.4 thou/uL (1.20-3.40); #Monocytes 0.5 thou/uL (0.11-0.59); #Neutrophils 5.5 thou/uL (1.40-6.50); %Basophils 0.9 % (0.0-1.0); %Eosinophils 4.5 % (0.0-10.0); %Lymphocytes 18.2 % (21.0-51.0); %Monocytes 5.9 % (0.0-10.0); %Neutrophils 70.5 % (42.0-75.0); Hemoglobin 11.2 g/dL (12.0-16.0); Mean Corpuscular HGB CONC 32.8 g/dL (32.0-36.0); Mean Corpuscular Hemoglobin 28.4 pg (27.0-31.0); Mean Corpuscular Volume 86.7 fL (78.0-98.0); Mean Platelet Volume 9.8 fL (7.4-10.4); Platelet Count 71 thou/uL (130-400); RBC Distribution Width 17.3 % (11.5-14.5); Red Blood Cell (RBC) Count 3.93 mill/uL (4.20-5.40); White Blood Cell (WBC) Count 8.3 thou/uL (4.8-10.8)
[2021-06-17 10:22] LABS: Critical Call w/ Read Back 3
[2021-06-17] MEDS ORDERED: Heparin 10,000 UNITS/ 10 ML VIAL ONE (10:22)
[2021-06-17 10:40] LABS: Anion Gap 14 mmol/L (10-20); BUN (Urea Nitrogen) 49 mg/dL (9.8-20.1); Calc. Creatinine Clearance 27 mL/min (70-130); Calcium 10.6 mg/dL (7.8-10.44); Carbon Dioxide 30 mmol/L (23-31); Chloride 96 mmol/L (98-107); Glucose 263 mg/dL (83-110); Potassium 4.5 mmol/L (3.5-5.1); Sodium 135 mmol/L (136-145)
[2021-06-17] MEDS ORDERED: Tuberculin PPD 0.1 ML VIAL I-DERMAL SCH ×2 (10:45→11:00)
[2021-06-17] MEDS: Rosuvastatin 10 MG TAB PO SCH (20:31)
[2021-06-18] MEDS: Levothyroxine Sodium 112 MCG TAB PO SCH (06:47)
[2021-06-18] MEDS: Levothyroxine Sodium 25 MCG TAB PO SCH (06:47)
[2021-06-18] MEDS: HumaLOG 300 UNITS/3 ML VIAL SC PRN (06:48)
[2021-06-18 06:57] LABS: #Eosinphils 0.2 thou/uL (0.0-0.7); #Lymphocytes 1.7 thou/uL (1.20-3.40); #Monocytes 0.4 thou/uL (0.11-0.59); #Neutrophils 6.5 thou/uL (1.40-6.50); %Basophils 0.5 % (0.0-1.0); %Eosinophils 1.8 % (0.0-10.0); %Lymphocytes 19.6 % (21.0-51.0); %Monocytes 4.9 % (0.0-10.0); %Neutrophils 73.2 % (42.0-75.0); Hemoglobin 11.7 g/dL (12.0-16.0); Mean Corpuscular HGB CONC 32.5 g/dL (32.0-36.0); Mean Corpuscular Hemoglobin 28.3 pg (27.0-31.0); Mean Corpuscular Volume 87.1 fL (78.0-98.0); Mean Platelet Volume 9.7 fL (7.4-10.4); Platelet Count 61 thou/uL (130-400); RBC Distribution Width 17.4 % (11.5-14.5); Red Blood Cell (RBC) Count 4.12 mill/uL (4.20-5.40); White Blood Cell (WBC) Count 8.9 thou/uL (4.8-10.8)
[2021-06-18 07:14] LABS: Anion Gap 17 mmol/L (10-20); BUN (Urea Nitrogen) 36 mg/dL (9.8-20.1); Calc. Creatinine Clearance 34 mL/min (70-130); Calcium 10.5 mg/dL (7.8-10.44); Carbon Dioxide 24 mmol/L (23-31); Chloride 98 mmol/L (98-107); Glucose 205 mg/dL (83-110); Potassium 4.7 mmol/L (3.5-5.1); Sodium 134 mmol/L (136-145)
[2021-06-18] MEDS ORDERED: Heparin 10,000 UNITS/ 10 ML VIAL ONE ×2 (09:13→15:00)
[2021-06-18] MEDS: Carvedilol 6.25 MG TAB PO SCH ×2 (09:31→15:40)
[2021-06-18] MEDS: DULoxetine 60 MG CAP PO SCH (09:31)
[2021-06-18] MEDS: Acetaminophen 325 MG TAB PO SCH ×3 (09:31→20:30)
[2021-06-18] MEDS: levETIRAcetam in NS 500 MG in Premix Bag 1 BAG IVPB SCH ×2 (09:31→20:31)
[2021-06-18] MEDS: Aspirin 81 mg Enteric Coated Tablet PO SCH (09:31)
[2021-06-18] MEDS: Lantus 1000 UNITS/10 ML VIAL SC SCH (09:32)
[2021-06-18] MEDS: Gabapentin 300 MG CAP PO SCH (09:32)
[2021-06-18] MEDS: Lidocaine 5% Patch TD SCH (09:32)
[2021-06-18] MEDS ORDERED: CEFAZOLIN 2 GM in Premix Bag 1 BAG IVPB SCH (17:15)
[2021-06-18] MEDS: Rosuvastatin 10 MG TAB PO SCH (20:30)
[2021-06-18] MEDS ORDERED: Gabapentin 300 MG CAP PO SCH (21:00)
[2021-06-18] MEDS: Transdermal Patch Removal TOP SCH (23:01)
[2021-06-18] MEDS: hydrALAZINE 20 MG/ML VIAL SLOW IVP PRN (23:03)
[2021-06-18 23:04] VITALS: BP 177/70
[2021-06-19] MEDS: Levothyroxine Sodium 112 MCG TAB PO SCH (06:22)
[2021-06-19] MEDS: Levothyroxine Sodium 25 MCG TAB PO SCH (06:22)
[2021-06-19 07:03] LABS: Anion Gap 18 mmol/L (10-20); BUN (Urea Nitrogen) 42 mg/dL (9.8-20.1); Calc. Creatinine Clearance 33 mL/min (70-130); Carbon Dioxide 25 mmol/L (23-31); Chloride 97 mmol/L (98-107); Glucose 215 mg/dL (83-110); Potassium 4.9 mmol/L (3.5-5.1); Sodium 135 mmol/L (136-145)
[2021-06-19 07:48] VITALS: TEMP 97
[2021-06-19] MEDS ORDERED: ceFAZolin 2 GM/DEX 5% 100 ML BAG ONE (08:46)
[2021-06-19] MEDS ORDERED: READ PPD TEST SITE PO SCH (09:00)
[2021-06-19] MEDS ORDERED: Heparin 5,000 UNITS/ML VIAL ONE (09:04)
[2021-06-19] MEDS ORDERED: Protamine Sulfate 50 MG/5 ML VIAL ONE (09:04)
[2021-06-19] MEDS ORDERED: Heparin 10,000 UNITS/ 10 ML VIAL ONE (09:04)
[2021-06-19] MEDS ORDERED: Bupivacaine PF 0.5% 30 ML VIAL ONE (09:04)
[2021-06-19] MEDS ORDERED: Lidocaine 1% w/Epinephrine 1:100K 20 ML VIAL ONE (09:04)
[2021-06-19] MEDS ORDERED: Sodium Chloride 0.9% 30 ML ONE (09:04)
[2021-06-19] MEDS ORDERED: Phenylephrine 10 MG/ML VIAL ONE (09:20)
[2021-06-19] MEDS ORDERED: Fentanyl 100 MCG/2 ML VIAL ONE (09:20)
[2021-06-19] MEDS ORDERED: Metoclopramide HCl 10 MG/2 ML VIAL ONE (09:49)
[2021-06-19] MEDS ORDERED: ePHEDrine 50 MG/ML VIAL ONE (09:49)
[2021-06-19] MEDS ORDERED: Rocuronium Bromide 10 MG/ML (10ML VIAL) ONE (09:49)
[2021-06-19] MEDS ORDERED: PHENYLEPHRINE-NS 100 MCG/ML 10 ML SYRINGE ONE (09:49)
[2021-06-19] MEDS ORDERED: PROPOFOL 200 MG/20 ML VIAL ONE (09:49)
[2021-06-19] MEDS ORDERED: Ondansetron PF 4 MG/2 ML Vial ONE (09:49)
[2021-06-19] MEDS ORDERED: Sodium Bicarb 50 MEQ/50 ML Abboject 8.4% SYRINGE ONE ×3 (11:54→13:23)
[2021-06-19] MEDS ORDERED: EPINEPHrine 1 MG/10 ML Abboject SYRINGE ONE ×2 (11:54→12:28)
[2021-06-19] MEDS ORDERED: Norepinephrine 4 MG/4 ML VIAL ONE ×2 (11:54)
[2021-06-19] MEDS ORDERED: Propofol 1,000 MG/100 ML VIAL IV ONE (12:16)
[2021-06-19] MEDS ORDERED: Sodium Chloride 0.9% 10 ML ONE (12:17)
[2021-06-19] MEDS ORDERED: EPINEPHrine 4 MG in Dextrose 5% in Water 250 ML IV SCH (12:30)
[2021-06-19] MEDS ORDERED: Sodium Bicarbonate 2.5 MEQ/5 ML VIAL ONE (13:23)
[2021-06-25 13:42] LABS: Actual Bicarbonate (HCO3a) 22.1 mEq/L (22-28); Base Excess (BEa) -3.4 mEq/L (-2.0 to +3.0); CO2 Tension 42.1 mmHg (35.0-45.0); Hemoglobin (Hb) 7.3 g/dL (12.0-16.0); pH, Arterial 7.34 (7.35-7.45)
[2021-06-25 13:43] LABS: Actual Bicarbonate (HCO3a) 20.8 mEq/L (22-28); Analyzer IN Cardio OR; Base Excess (BEa) -7.1 mEq/L (-2.0 to +3.0); CO2 Tension 55.3 mmHg (35.0-45.0); Calcium, Ionized (arterial) 1.69 mmol/L (1.12-1.30); Carboxyhemoglobin (COHb) 1.1 gm% (0.0-3.0); Hemoglobin (Hb) 8.4 g/dL (12.0-16.0); O2 Tension (PaO2), arterial 267.9 mmHg (> 60.0); Potassium - ABG Lab 5.84 mmol/L (3.70-5.30)
[2021-06-25 13:43] LABS: Analyzer IN Cardio OR; Calcium, Ionized (arterial) 1.38 mmol/L (1.12-1.30); Potassium - ABG Lab 4.69 mmol/L (3.70-5.30)
[2021-06-25 13:43] LABS: Actual Bicarbonate (HCO3a) 20.5 mEq/L (22-28); Analyzer IN Cardio OR; Base Excess (BEa) -4.9 mEq/L (-2.0 to +3.0); CO2 Tension 39.4 mmHg (35.0-45.0); Calcium, Ionized (arterial) 1.44 mmol/L (1.12-1.30); Carboxyhemoglobin (COHb) 1.2 gm% (0.0-3.0); Hemoglobin (Hb) 7.1 g/dL (12.0-16.0); Potassium - ABG Lab 5.17 mmol/L (3.70-5.30); pH, Arterial 7.33 (7.35-7.45)
[2021-06-25 13:44] LABS: Actual Bicarbonate (HCO3a) 16.5 mEq/L (22-28); Analyzer IN Cardio OR; Base Excess (BEa) -9.2 mEq/L (-2.0 to +3.0); CO2 Tension 34.7 mmHg (35.0-45.0); Calcium, Ionized (arterial) 1.36 mmol/L (1.12-1.30); Carboxyhemoglobin (COHb) 0.6 gm% (0.0-3.0); Hemoglobin (Hb) 9.1 g/dL (12.0-16.0); O2 Tension (PaO2), arterial 435.7 mmHg (> 60.0); Potassium - ABG Lab 5.59 mmol/L (3.70-5.30); Puncture Site Arterial Line; pH, Arterial 7.29 (7.35-7.45)
[2021-06-25 13:44] LABS: Analyzer IN Cardio OR; Base Excess (BEa) -7.9 mEq/L (-2.0 to +3.0); CO2 Tension 54.3 mmHg (35.0-45.0); Calcium, Ionized (arterial) 1.69 mmol/L (1.12-1.30); Carboxyhemoglobin (COHb) 0.4 gm% (0.0-3.0); Hemoglobin (Hb) 8.3 g/dL (12.0-16.0); O2 Tension (PaO2), arterial 440.4 mmHg (> 60.0); Potassium - ABG Lab 5.55 mmol/L (3.70-5.30)
[2021-06-25 13:45] LABS: Puncture Site Arterial Line; pH, Arterial 7.19 (7.35-7.45)
[2021-06-25 13:46] LABS: pH, Arterial 7.19 (7.35-7.45)
[2021-06-25 13:47] LABS: Puncture Site Arterial Line
[2021-06-25 13:48] LABS: O2 Tension (PaO2), arterial 553.8 mmHg (> 60.0); Puncture Site Arterial Line
[2021-06-25 13:49] LABS: O2 Tension (PaO2), arterial 568.8 mmHg (> 60.0); Puncture Site Arterial Line
== END 2021-06-19 15:43 | disposition expired | DRG 673 ==
LOC: ERS 19:04 → 3SE 21:48 → CCU 06-12 15:54 → IMCU/EMU 06-14 09:03 → SURG A 06-19 10:36
PROVIDERS: ADMIT Student in an Organized Health Care Education/Training Program; ATTEND Internal Medicine
PROC: 5A09557 Assistance with Respiratory Ventilation, Greater than 96 Consecutive Hours, Continuous Positive Airway Pressure (ICD-10-PCS; principal; 2021-06-05)
PROC: 06HY33Z Insertion of Infusion Device into Lower Vein, Percutaneous Approach (ICD-10-PCS; 2021-06-14)
PROC: 031B0ZF Bypass Right Radial Artery to Lower Arm Vein, Open Approach (ICD-10-PCS; 2021-06-19)
PROC: 5A12012 Performance of Cardiac Output, Single, Manual (ICD-10-PCS; 2021-06-19)
PROC: 3E033XZ Introduction of Vasopressor into Peripheral Vein, Percutaneous Approach (ICD-10-PCS; 2021-06-19)
PROC: 0JH63XZ Insertion of Tunneled Vascular Access Device into Chest Subcutaneous Tissue and Fascia, Percutaneous Approach (ICD-10-PCS; 2021-06-19)
PROC: 02HV33Z Insertion of Infusion Device into Superior Vena Cava, Percutaneous Approach (ICD-10-PCS; 2021-06-19)
PROC: B548ZZA Ultrasonography of Superior Vena Cava, Guidance (ICD-10-PCS; 2021-06-19)
DX: N17.9 Acute kidney failure, unspecified (principal); G92.8 Other toxic encephalopathy; J96.00 Acute respiratory failure, unspecified whether with hypoxia or hypercapnia; I50.33 Acute on chronic diastolic (congestive) heart failure; I13.2 Hypertensive heart and chronic kidney disease with heart failure and with stage 5 chronic kidney disease, or end stage renal disease; E87.2 Acidosis; I47.1 Supraventricular tachycardia; E87.1 Hypo-osmolality and hyponatremia; M48.56XA Collapsed vertebra, not elsewhere classified, lumbar region, initial encounter for fracture; I97.121 Postprocedural cardiac arrest following other surgery; I42.9 Cardiomyopathy, unspecified; N18.6 End stage renal disease; Z51.5 Encounter for palliative care; Z20.822 Contact with and (suspected) exposure to COVID-19; G47.33 Obstructive sleep apnea (adult) (pediatric); E87.5 Hyperkalemia; E03.9 Hypothyroidism, unspecified; K21.9 Gastro-esophageal reflux disease without esophagitis; E11.22 Type 2 diabetes mellitus with diabetic chronic kidney disease; E66.9 Obesity, unspecified; I25.10 Atherosclerotic heart disease of native coronary artery without angina pectoris; D72.829 Elevated white blood cell count, unspecified; D63.1 Anemia in chronic kidney disease; G93.89 Other specified disorders of brain; M54.9 Dorsalgia, unspecified; G89.29 Other chronic pain; D69.6 Thrombocytopenia, unspecified; E11.51 Type 2 diabetes mellitus with diabetic peripheral angiopathy without gangrene; R19.7 Diarrhea, unspecified; E88.09 Other disorders of plasma-protein metabolism, not elsewhere classified; E78.1 Pure hyperglyceridemia; E11.65 Type 2 diabetes mellitus with hyperglycemia; Z96.41 Presence of insulin pump (external) (internal); I27.20 Pulmonary hypertension, unspecified; T40.605A Adverse effect of unspecified narcotics, initial encounter; T48.205A Adverse effect of unspecified drugs acting on muscles, initial encounter; E83.52 Hypercalcemia; Y83.8 Other surgical procedures as the cause of abnormal reaction of the patient, or of later complication, without mention of misadventure at the time of the procedure; E11.649 Type 2 diabetes mellitus with hypoglycemia without coma; Z79.4 Long term (current) use of insulin; Z91.041 Radiographic dye allergy status; Z91.048 Other nonmedicinal substance allergy status; Z88.1 Allergy status to other antibiotic agents; Z88.5 Allergy status to narcotic agent; Z88.8 Allergy status to other drugs, medicaments and biological substances; Z88.2 Allergy status to sulfonamides; Z91.040 Latex allergy status; Z79.82 Long term (current) use of aspirin; Z79.899 Other long term (current) drug therapy; Z79.890 Hormone replacement therapy; Z79.84 Long term (current) use of oral hypoglycemic drugs; Z95.5 Presence of coronary angioplasty implant and graft; Z90.49 Acquired absence of other specified parts of digestive tract; Z90.710 Acquired absence of both cervix and uterus; Z87.891 Personal history of nicotine dependence; Z95.1 Presence of aortocoronary bypass graft; Z95.2 Presence of prosthetic heart valve; Z68.33 Body mass index [BMI] 33.0-33.9, adult; Z99.3 Dependence on wheelchair
CPT/HCPCS: 36415; 36416; 36430; 36600; 70450; 70496; 70498; 71045; 72131; 74176; 80048; 80053; 80061; 80307; 81001; 82140; 82306; 82553; 82805; 83605; 83735; 83970; 84146; 84443; 84484; 85025; 85610; 85730; 86580; 86704; 86706; 86803; 86850; 86900; 86901; 87340; 90935; 93005; 93010; 93306; 93970; 94660; 95712; 95816; 95819; 95957; 96374; C1752; G0257; J0171; J0360; J0610; J1642; J1644; J1815; J1940; J1953; J2370; J2405; J2543; J2704; J2720; J2765; J3010; J3490; J7030; J7050; J7070; L8670; P9016; P9035; Q9967; S0020; U0003; U0005